=== PATIENT | male | born 1960 | race Caucasian/White ===

== ENCOUNTER 2016-04-22 23:53 | Day surgery (SDC) | payer SELFPAY ==
[~2016-04-22] VITALS: Ht 175.3 cm; Wt 72.6 kg
[2016-04-22 23:55] VITALS: BP 139/89
[2016-04-23] MEDS ORDERED: TOPROL XL 50MG50 MG PO (00:07)
[2016-04-23] MEDS ORDERED: ASPIRIN 325MG325 MG PO (00:08)
--- NOTE | 2016-04-23 00:11 | Emergency Room Report ---
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 N Clinical Suspician of Infection? N Mental Status: 1 - Regular (Normal Baseline) Sepsis Risk:Low Sepsis Risk Have you (or family members/close friends) recently traveled outside the [place]? N If Yes, where/when: Have you had exposure to infectious disease within the past month? N TB? Other? Specify: Source patient, RN notes reviewed, family, old records Exam Limitations no limitations Comment acute onset of pressure chest pain at 2300 and took asa and ntg at home - he has hx of ht disease with stent 2013 Cardiac Chest Pain Chest pain indicative of cardiac Yes Timing/Duration 1-3 hours, changing over time Severity/Quality severe, pressure Location central Chest Pain Radiation no radiation Activities at Onset resting Nitro Today/Relief 0.4 mg x 4, provided at home, mild relief Aspirin Treatment Today 325 mg x 1, provided at home Beta rand treatment today no beta rand taken Cardiac risk factors + cardiovascular disease Prior Workup/Intervention stent(s) Timing/Duration this evening Severity severe ALLERGIES Coded Allergies: No Known Allergies (04/23/16) Home Medications Reported Medications Metoprolol Succinate Xl (Toprol Xl) 50 MG PO DAILY ASPIRIN (Aspirin 325MG) 325 MG PO DAILY History Medical History General CAD? Yes Angina: Yes CT: Yes Hypertension? Yes Hyperlipidemia? No CHF? No DVT? No PE? No COPD? No Asthma? No Anemia? No GERD? No Gastric ulcers? No GI Bleed? No Hernia? No Thyroid Problems? No Hypothyroidism? No CVA? No Seizures? No Diabetes? No Renal Insuffiency? No End Stage Renal Disease? No UTI? No Stones? No BPH? No GB Disease: No Nephritic Syndrome? No Asplenia? No Hepatitis? No Sickle Cell Disease? No Arthritis? No Migraines? No Cataracts? No Glaucoma? No MRSA? No HIV? No TB? No Anxiety? No Depression? No Cancer? No More? No Immunization Hx DT/Tetanus Unknown Surgical Hx Previous Surgery?Y ANKLE 11 STENT PLACED Social History Smoking Hx Smoker: Current Every Day Smoker Tobacco: Yes Type Cigarettes Alcohol Alcohol: Yes Drugs none Review of Systems All Other Systems Reviewed and Negative Constitutional denies fever Eyes denies drainage ENT denies: ear pain, epistaxis, throat pain. Respiratory denies cough, denies shortness of breath Cardiovascular see HPI, chest pain, denies syncope Gastrointestinal denies abdominal pain, denies diarrhea, denies vomiting Genitourinary denies: dysuria, frequency, hesitancy, hematuria. Musculoskeletal denies back pain, denies joint pain, denies joint swelling, denies neck pain Skin denies rash Psychiatric/Neurological denies headache, denies seizure Physical Exam Vital Signs Vital Signs Date Time Temp Pulse Resp B/P Pulse O2 O2 Flow FiO2 Ox Delivery Rate 04/23 0045 69 18 113/73 99 04/23 0040 74 18 100/69 99 04/23 0021 74 18 113/90 99 04/23 0020 18 0314 2355 98.5 69 18 139/89 99 - WBC >12,000 or <4,000 or 10% bands? 2 or more SIRS Criteria Met? B/P:113/90 MAP:105 Creatinine >2.0? UA output<0.5ml/kg/hr for 2 hrs? Platelet count >100,000? Lactate >2.0mmol/1? INR >1.2 or PTT > than 60 sec? Evidence of Organ Dysfunction? Provider documented clinical suspician of infection? N Sepsis Criteria Count: 0 Sepsis Risk: Low Sepsis Risk General Appearance no apparent distress Eye Exam - bilateral eye PERRL, bilateral eye EOMI Ear, Nose, Throat normal ENT inspection Neck supple Respiratory Status No: respiratory distress. Lung Sounds bilateral: lungs clear. 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 No Results/Orders Laboratory Tests 04/23/16 0000: Sodium 137, Potassium 3.5, Chloride 101, Carbon Dioxide 35 H, BUN 8, Creatinine 0.8, Estimated Creat Clear 108, Estimated GFR (MDRD) 101, Glucose 110 H, Calcium 8.7, Total Bilirubin 0.3, AST 14 L, ALT 15, Alkaline Phosphatase 90, Creatine Kinase 70, CK-MB (CK-2) Rel Index 2.9, CK and CKMB Interp 2.0, Troponin I 0.02, Total Protein 6.7, Albumin 3.1 L, Globulin 3.6 H, Albumin/Globulin Ratio 0.9 L, PT 10.3, INR 0.96, APTT 23.7, WBC 6.8, RBC 4.79, Hgb 16.1, Hct 49.0, MCV 102.4 H, RDW 13.2, Plt Count 199, MPV 5.4 L, Gran % 55.4, Gran # 3.8 , Lymphocytes % 35.4, Monocytes % 6.8, Eosinophils % 2.0, Basophils % 0.4, Lymphocytes # 2.4, Monocytes # 0.5, Eosinophils # 0.1, Basophils # 0.0, PUBS MCHC 32.9, MCH 33.7 H Current Medication Orders Sig/Thomas Start time Last Medication Dose Route Stop Time Status Admin Heparin Sodium 7,500 UNITS ONCE ONE 04/23 99 DC (Porcine) IV 04/23 010 Morphine Sulfate 4 MG 04/23 99 UNi IV Prasugrel 60 MG ONCE ONE 04/23 99 DC PO 04/23 010 Morphine Sulfate 0 .STK-MED ONE 04/23 0055 DC .ROUTE Sodium Chloride 1,000 ML .STK-MED ONE 04/23 0052 DC IV Heparin Sodium 0 .STK-MED ONE 04/23 0049 DC (Porcine) .ROUTE Prasugrel 0 .STK-MED ONE 04/23 0047 DC PO Morphine Sulfate 4 MG ONCE ONE 04/23 004 DC IV 04/23 0046 Nitroglycerin/ 250 ML .Q25H 04/23 0045 AC Dextrose IV 04/24 1004 Nitroglycerin/ 250 ML .STK-MED ONE 04/23 0045 DC Dextrose IV Morphine Sulfate 0 .STK-MED ONE 04/23 0044 DC .ROUTE Ondansetron HCl 4 MG ONCE ONE 04/23 0030 DC 04/23 IV 04/23 0031 0020 Morphine Sulfate 0 .STK-MED ONE 04/23 0017 DC .ROUTE Ondansetron HCl 0 .STK-MED ONE 04/23 0017 DC .ROUTE Nitroglycerin 0 .STK-MED ONE 04/23 0016 DC .ROUTE Morphine Sulfate 4 MG ONCE ONE 04/235 DC 04/23 IV 04/23 0016 0020 Nitroglycerin 1 IN ONCE ONE 04/235 DC 04/23 TP 04/23 0016 0019 Sodium Chloride 10 ML PRN PRN 04/23 0015 AC IV 04/24 0001 Orders Procedure Date/time Status ELECTROCARDIOGRAM REQUEST 04/23 0001 Active CHEST-PORTABLE 04/23 0001 Active IV SALINE LOCK 04/23 0001 Active PARTIAL THROMBOPLASTIN TIME 04/23 0001 Complete PROTHROMBIN TIME 04/23 0001 Complete COMPLETE METABOLIC PANEL 04/23 0001 Complete CBC WITH AUTO DIFF 04/23 0001 Complete CARDIAC ENZYMES 04/23 0001 Complete CM/EKG CM/EKG 1 Monitor Rhythm Normal Sinus Rhythm EKG no evid. of ischemic chgs CM/EKG 2 Monitor Rhythm Normal Sinus Rhythm EKG ST elevation XRAY/CT/US XRAY/CT/US XRAY chest XR interpretation by reviewed by me Xray Results abnormal (copd) Departure Departure Time of Disposition 0051 Disposition Still a Patient Clinical Impression Primary Impression: STEMI (ST elevation myocardial infarction) Qualifiers: Involved coronary artery: unspecified coronary artery Qualified Code: I21.3 - ST elevation (STEMI) myocardial infarction of unspecified site Condition STABLE Referrals Agustín Castro MD ED Critical Care Critical Care Yes Time spent 30-74 min Vital system(s) involved: Circulatory Failure I was present at bedside for Coordinating pt's care, Interpreting EKGs/Strips , Reviewing lab results, Discussing pt condition, Examining radiographs If Critical Care minutes are documented, the time involved in the performance of seperately reportable procedures was not counted toward critical care time documented. I directly delivered medical care to this critically ill and/or injured patient. Timely evaluation and treatment was necessary to address the significant organ system(s) dysfunction present in this patient. at 0106
[2016-04-23 00:17] LABS: HEMOGLOBIN 16.1 g/dL (14.1-18.0); LYMPH # 2.4 K/mm3 (0.7-4.5); LYMPH % 35.4 % (10-50)
--- NOTE | 2016-04-23 04:27 | RADIOLOGY REPORT PS360 ---
CARDIAC CATHETERIZATION DATE OF CATHETERIZATION:04/23/2016 4:04 AM PROCEDURES: 1. Selective coronary angiogram 2. Stent deployment to the ostial proximal dominant right coronary artery followed by stent deployment to the distal dominant right coronary artery 3. Right retrograde femoral angiogram 4. Stent deployment to the right common iliac artery 5. Left femoral arterial access 6. Catheter placement in the right common iliac artery 7. Right common iliac artery antegrade angiographic INDICATION FOR TEST: 1. Acute ST elevation or cortical infarction 2. Drug-eluting stent dislodgment in the right iliac artery Informed consent was obtained prior to the procedure. COMPLICATIONS: ESTIMATED BLOOD LOSS: Less than 10 ml. TECHNIQUE: The patient failed his Allens test therefore one percent lidocaine was used to anesthetize the right groin. The right femoral artery was accessed via the Seldinger technique and a 6 Italian sheath was placed in the right femoral artery. An ACT was measured greater than 400 seconds. Patient was loaded with Effient 60 mg in the emergency department as well as aspirin and heparin. The JR4 guide catheter was used intubate the right coronary artery and a choice PT wire was placed distally. There were 2 lesions of interest in the distal segment therefore 3.5 x 38 mm stent was placed in the right coronary artery hoping to primary stent the distal lesions trying to avoid no reflow and dislodgment of the thrombus. The stent made it to the midportion of the right coronary artery but I could not get it all the way down to the stenotic area. Upon pulling back the stent the side strut of the stent causing significant flaring of the stent. I was unable to get the stent back into the guide catheter therefore the entire unit including the wire and guide catheter was pulled back into the femoral artery. I was hoping to remove the stent guide catheter and wire into the femoral artery sheath however the strut would not fit into the 6 Italian femoral artery sheath. The stent was then advanced into the right common iliac artery which was a very large patent vessel. I was hoping to place a bare-metal balloon expandable stent into the common iliac artery and have the metal struts from the peripheral stent catheter change coronary stent and there by sandwiching the coronary stent against the right common iliac artery. A 10 mm x 39 mm balloon expandable stent was deployed at 12 lolita with the coronary stent between the stent and the right common iliac artery and trauma. This was deployed however the stress did not catheter which and I pulled both the stent and the balloon from behind the stent into the external iliac artery. I was then able to advance the stent back underneath the stent in the common iliac artery and this time I placed a 12 mm x 20 mm balloon in the common iliac artery stent in this time deployed the balloon 14 lolita. Unfortunately I could not trap the coronary stent with this balloon either. I tried upsizing several times including cutting the actual stent shaft and try to feed into a different and larger sheath however I only had a 7 Italian sheath. Furthermore I did not have a snare in stock so I could not scenario the stent. I was able to pull the stent back into the artery right AMI site and achieve hemostasis in the right common femoral artery. Patient had recent perfuse while in the emergency department following the administration of heparin and Effient. Fortunately we were not dealing with acute ST elevation once in the C Application [employer]. I anticipate a patient be going to the operating room however I didn't feel that his coronary situation should be revascularized prior to going to vascular surgery. 1% lidocaine was used to anesthetize the left groin and a 6 Italian sheath was placed in the left femoral artery. A 3-D RC guide catheter was placed in the right coronary artery in the choice PT wire was placed distally. A 3 mm x 10 mm balloon was used to predilate the stenosis in the proximal right coronary artery and a 3.5 x 18 mm resolute stent was deployed at 20 lolita in the ostium. I then advanced fresh balloon into the distal area which was the infarct area and deployed that at 18 lolita. With this deployed I rales a guideline her down into the distal right coronary artery. With the guideline her in the distal segment at 3.5 x 38 mm resolute stent was deployed at 20 lolita in the distal right coronary artery reducing the infarct area as well as catheter sharing the distal thrombus reducing the stenosis to less than 10%. An ACT was still greater than 400 seconds. The air ambulance was present therefore patient was prepped for transportation to [facility] for the stent removal in the right common femoral artery. The TRAVIS catheter was placed in the right common iliac artery and angiography was performed to demonstrate patency of the iliac arteries as well as demonstrated no active bleed and the groin site and the stent was against the external wall of the right common femoral artery with wide patency of the proximal SFA and profunda femoris. JL4 guiding catheter was then used to perform left coronary angiography. She was transferred to [facility] in stable condition. Left femoral sheath was sewn into place. ANGIOGRAPHIC RESULTS: 1. The left main artery is normal 2. The left anterior descending artery has an ostial 40% stenosis followed by a stent in the proximal segment which is widely patent with mild in-stent restenosis. There is an additional 50% mid vessel stenosis followed by long tubular 90% stenosis in the distal segment. 3. The circumflex artery is a nondominant yet still large artery has a stent throughout the proximal mid obtuse marginal artery which is widely patent free of in-stent restenosis 4. The right coronary artery is a dominant vessel and has a proximal 50-60% hazy stenosis with mid vessel 40% stenoses followed by a 90% stenosis followed by distal 50% stenosis with an active thrombus proximal to the stenosis. The posterior descending artery is a large vessel and has a proximal concentric 60% stenosis 5. The VAN ventriculogram reveals not performed 6. The left ventricular end-diastolic pressure not measured IMPRESSION: 1. Acute elevation myocardial infarction about the right coronary artery 2. Successful stenting of the ostial proximal dominant right coronary artery followed by drug-eluting stenting to the distal dominant right coronary artery 3. Disease in the LAD circumflex artery as described above with patent stents 4. Successful stenting of the right common iliac artery in an attempt to try and mobile drug-eluting coronary stent which was unsuccessful. PLAN: 1. Continue Effient and aspirin 2. Tobacco cessation 3. High intensity Lipitor Crestor 4. Transfer to [facility]. It is my opinion patient would be best served by going to vascular surgery and having an open cut down to the right common femoral artery and then extracting the drug-eluting stent. It is likely this could be closed with a simple stitch rather than requiring a patch however I will leave that up to vascular surgery. 5. It is possible the contralateral approach could be undertaken to snare the stent however this would then cause rebleeding at the artery and the site and I believe direct visualization with stent extraction would be most advisable
--- NOTE | 2016-04-23 05:27 | RADIOLOGY REPORT PS360 ---
CHEST-PORTABLE HISTORY: chest pain ORDERING PHYSICIAN: Liam Marie MD PATIENT AGE: 56 years COMPARISON: None available FINDINGS: The cardiomediastinal silhouette and pulmonary vascularity are within normal limits. The lungs are clear without infiltrates, suspicious nodules, or pleural effusions. No acute bony abnormalities. Old granulomatous disease IMPRESSION: No acute finding
[2016-04-23 05:42] VITALS: BP 149/90
== END 2016-04-23 06:12 | disposition short-term general hospital (02) ==
LOC: ER 23:53 → CATHLAB 04-23 00:07 → ER 04-23 01:08 → CATHLAB 04-23 01:20 → 2ND 04-23 02:23 → ER 04-23 02:23 → CATHLAB 04-23 06:12 → EDSTATUS 04-23 08:38
PROVIDERS: Emergency Medicine; Internal Medicine
PROC: 047C34Z Dilation of Right Common Iliac Artery with Drug-eluting Intraluminal Device, Percutaneous Approach (ICD-10-PCS; 2016-04-23)
PROC: 027135Z Dilation of Coronary Artery, Two Arteries with Two Drug-eluting Intraluminal Devices, Percutaneous Approach (ICD-10-PCS; principal; 2016-04-23 01:47)
DX: I21.3 ST elevation (STEMI) myocardial infarction of unspecified site (principal); I25.10 Atherosclerotic heart disease of native coronary artery without angina pectoris; Z72.0 Tobacco use; T82.528A Displacement of other cardiac and vascular devices and implants, initial encounter
CPT/HCPCS: C1725; C1766; C1769; C1876; C1894; J1644; J2405; Q9967

== ENCOUNTER → 2016-06-13 | Outpatient (CLI) | payer MEDICAID ==
[~2016-06-13] MED LIST: ASPIRIN 325MG325 MG PO; TOPROL XL 50MG50 MG PO
[2016-06-13 09:01] LABS: HEMOGLOBIN 14.9 g/dL (14.1-18.0); LYMPH # 1.5 K/mm3 (0.7-4.5); LYMPH % 19.2 % (10-50)
--- NOTE | 2016-06-13 09:38 | RADIOLOGY REPORT PS360 ---
CHEST(2 VIEWS-NOT PORTABLE) HISTORY: Hypertension, shortness breath, cough, former smoker HTN ORDERING PHYSICIAN: STEVENSON DICKSON PATIENT AGE: 56 years COMPARISON: 04/22/2016 FINDINGS: The cardiomediastinal silhouette and pulmonary vascularity are within normal limits. There is hyperinflation with attenuation of the peripheral pulmonary vessels and bronchial thickening consistent with obstructive chronic bronchitis. There is evidence of old granulomatous disease. No lobar consolidation or collapse is evident. Coronary artery stent and/or calcification noted.. No acute bony abnormalities. IMPRESSION: 1. Obstructive chronic bronchitis with old granulomatous disease. 2. Coronary artery disease. 3. No change with no acute finding
[2016-06-13 10:48] LABS: BUN 3 mg/dL (7-18); GFR (ESTIMATED) 101 ML/MIN (>60)
== END ==
LOC: RT 08:31 → LAB 08:31
PROVIDERS: Ophthalmology; Physician Assistant
DX: H26.9 Unspecified cataract (principal); E78.5 Hyperlipidemia, unspecified; Z01.810 Encounter for preprocedural cardiovascular examination; Z01.811 Encounter for preprocedural respiratory examination; Z01.812 Encounter for preprocedural laboratory examination